=== PATIENT | male | born 1990 | race Two or more races ===

== ENCOUNTER 2022-12-20 10:29 | Inpatient (IN) | payer OTHER ==
[~2022-12-20] VITALS: Ht 182.9 cm; Wt 93.4 kg
== END 2022-12-29 09:03 | disposition home or self-care (01) | DRG 330 ==
LOC: O/R 12-26 07:27 → SURH 12-26 08:15
PROVIDERS: Internal Medicine Geriatric Medicine; ADMIT Colon & Rectal Surgery; ATTEND Colon & Rectal Surgery
PROC: 0DBP4ZZ Excision of Rectum, Percutaneous Endoscopic Approach (ICD-10-PCS; 2022-12-26)
PROC: 0DJD8ZZ Inspection of Lower Intestinal Tract, Via Natural or Artificial Opening Endoscopic (ICD-10-PCS; 2022-12-26)
PROC: 0DTN4ZZ Resection of Sigmoid Colon, Percutaneous Endoscopic Approach (ICD-10-PCS; principal; 2022-12-26 11:00)
DX: K57.32 Diverticulitis of large intestine without perforation or abscess without bleeding (principal); K92.1 Melena; R59.0 Localized enlarged lymph nodes; Z20.822 Contact with and (suspected) exposure to COVID-19